=== PATIENT | male | born 1990 | race Hispanic/Latino ===

== ENCOUNTER 2019-02-13 15:53 | Emergency (ER) | payer BC ==
[2019-02-13 16:11] VITALS: RESP 16; TEMP 98.4
--- NOTE | 2019-02-13 16:54 | ED PDOC ---
HPI: Back Time Seen by Provider: 02/13/19 16:35 Chief Complaint (Nursing): Back Pain Chief Complaint (Provider): Back pain History Per: Patient History/Exam Limitations: no limitations Onset/Duration Of Symptoms: Hrs (x) Current Symptoms Are (Timing): Still Present Quality Of Discomfort: "Pain" Associated Symptoms: None Exacerbating Factor(s): Sitting Additional Complaint(s): Gustavo Narvaez is a 28 year old male, with no significant past medical history, who presents to the emergency department complaining of back pain s/p fall onset x2 hours ago. 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 He landed on a corner of a table. Patient states pain is alleviated with lying down or standing, and is exacerbated with sitting. At the time of injury, he laid down and applied ice with some improvement. However, when he stood up noticed pain was severe and was advised to come to the ER by his mom who is a nurse. Patient did not take any pain medication prior to arrival. He denies any head injuries or medical complaints. PMD: None provided. Past Medical History Reviewed: Historical Data, Nursing Documentation, Vital Signs Vital Signs: Last Vital Signs Temp 98.4 F 02/13/19 16:07 Pulse 106 H 02/13/19 16:07 Resp 16 02/13/19 16:07 BP 141/92 H 02/13/19 16:07 Pulse Ox 98 02/13/19 16:07 - Medical History PMH: No Chronic Diseases - Surgical History Surgical History: No Surg Hx - Family History Family History: States: Unknown Family Hx - Home Medications Home Medications: Ambulatory Orders Medication Instructions Recorded Naproxen 375 mg PO Q8 PRN #21 tablet 02/13/19 diaZEpam [Valium] 5 mg PO Q8 PRN #6 tab 02/13/19 - Allergies Allergies/Adverse Reactions: Allergies Allergy/AdvReac Type Severity Reaction Status Date / Time No Known Allergies Allergy Verified 02/13/19 16:06 Review of Systems ROS Statement: Except As Marked, All Systems Reviewed And Found Negative Musculoskeletal: Positive for: Back Pain Physical Exam - Reviewed Nursing Documentation Reviewed: Yes Vital Signs Reviewed: Yes - Physical Exam Appears: Positive for: No Acute Distress Head Exam: Positive for: ATRAUMATIC, NORMAL INSPECTION, NORMOCEPHALIC Skin: Positive for: Normal Color, Warm, Dry Eye Exam: Positive for: Normal appearance, EOMI, PERRL Neck: Positive for: Normal, Painless ROM, Supple Cardiovascular/Chest: Positive for: Regular Rate, Rhythm. Negative for: Murmur Respiratory: Positive for: Normal Breath Sounds. Negative for: Respiratory Distress Gastrointestinal/Abdominal: Positive for: Normal Exam, Soft. Negative for: Tenderness Back: Positive for: Other (Tenderness to right para-lumbar region. No obvious bony deformity) Extremity: Positive for: Normal ROM (upper and lower extremities). Negative for: Tenderness, Deformity, Swelling Neurological/Psych: Positive for: Awake, Alert, Normal Tone - ECG O2 Sat by Pulse Oximetry: 98 (RA) Pulse Ox Interpretation: Normal - Progress ED Course And Treament: xry of l s spine: neg for fx Medical Decision Making Medical Decision Making: Time: 16:35 Initial Impression: Back pain s/p fall Initial Plan: --Valium 5mg PO --Toradol 30mg IM --LS Spine AP/LAT [RAD] --Reevaluation Scribe Attestation: Documented by Sylvester Roach, acting as a scribe for Олег Schroeder PA-C. Provider Scribe Attestation: All medical record entries made by the Scribe were at my direction and personally dictated by me. I have reviewed the chart and agree that the record accurately reflects my personal performance of the history, physical exam, medical decision making, and the department course for this patient. I have also personally directed, reviewed, and agree with the discharge instructions and disposition. Disposition - Clinical Impression Clinical Impression: Back pain, Back contusion - Patient ED Disposition Is Patient to be Admitted: No - Disposition Referrals: [facility] [Outside] Disposition: Routine/Home Disposition Time: 17:58 Condition: FAIR Prescriptions: diaZEpam [Valium] 5 mg PO Q8 PRN #6 tab PRN Reason: Muscle Spasm Naproxen 375 mg PO Q8 PRN #21 tablet PRN Reason: Pain, Moderate (4-7) Instructions: Contusion (DC) Forms: [facility] ED School/Work Excuse
[2019-02-13] MEDS ORDERED: Oxycodone/Acetaminophen 5/325 mg Tab PO STA (18:07)
[2019-02-13] MEDS ORDERED: Oxycodone/Acetaminophen 5/325 mg Tab ONE (18:16)
--- NOTE | 2019-02-13 18:17 | RAD ---
Date of service: 02/13/2019 PROCEDURE: Radiographs of the Lumbar Spine. HISTORY: INJURY TO BACK COMPARISON: No prior. FINDINGS: BONES: Normal alignment. No listhesis. No fracture. DISC SPACES: Unremarkable. OTHER FINDINGS: None. IMPRESSION: Unremarkable radiographs of the lumbar spine.
[2019-02-13 18:36] VITALS: BP 139/81; PULSE 87; O2SAT 100
== END 2019-02-13 18:35 | disposition home or self-care (01) ==
LOC: H.ER 15:53
DX: M54.9 Dorsalgia, unspecified (principal); S30.0XXA Contusion of lower back and pelvis, initial encounter; W18.30XA Fall on same level, unspecified, initial encounter; Y99.0 Civilian activity done for income or pay
CPT/HCPCS: 72100; 96372; 99283; J1885